=== PATIENT | male | born 1990 | race Caucasian/White ===

== ENCOUNTER 2018-01-17 19:46 | Emergency (ER) | payer MEDICAID ==
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
== END 2018-01-17 21:10 | disposition home or self-care (01) ==
LOC: ER 19:46
DX: S01.112A Laceration without foreign body of left eyelid and periocular area, initial encounter (principal); W22.8XXA Striking against or struck by other objects, initial encounter; Y93.89 Activity, other specified; Y92.89 Other specified places as the place of occurrence of the external cause; Y99.8 Other external cause status
CPT/HCPCS: 12011; Z7502; Z7610